=== PATIENT | female | born 1990 | race Two or more races ===

== ENCOUNTER 2024-02-14 07:00 | Inpatient (IN) | payer OTHER ==
[~2024-02-14] VITALS: Ht 162.6 cm; Wt 48.1 kg
[2024-02-14] MEDS ORDERED: ROCALTROL0.25 MCG PO (08:38)
[2024-02-14] MEDS ORDERED: SYNTHROID137 MCG PO (08:38)
[2024-02-14] MEDS ORDERED: CALCIUM CARBON600 MG PO (08:39)
[2024-02-14 08:51] LABS: HEMATOCRIT 37.5 % (36.0-45.00); HEMOGLOBIN 12.5 g/dL (12.0-15.00); MEAN CELL VOLUME 78.5 fL (80.00-100.00); MEAN CORPUSCULAR HEMOGLOBIN 26.1 pg (27.00-32.0); MEAN CORPUSCULAR HGB CONC 33.3 g/dl (32.0-36.0); PLATELET COUNT 292 K/uL (150-450); RED BLOOD COUNT 4.77 M/uL (4.00-6.00); RED CELL DISTRIBUTION WIDTH 16.6 % (11.5-14.5)
[2024-02-14 08:52] LABS: URINE APPEARANCE Clear; URINE BILIRRUBIN Negative (NEGATIVE); URINE BLOOD Negative; URINE COLOR Yellow; URINE GLUCOSE Negative (NEGATIVE); URINE LEUKOCYTE Negative; URINE NITRATE Negative; URINE PROTEIN Negative (NEGATIVE); URINE UROBILINOGEN 0.2 E.U./dl
[2024-02-14 08:54] LABS: URINE BACTERIA 1777.6 uL (0.0-1933); URINE EPITHELIAL CELLS 12.1 uL (0.0-38.8); URINE RBC 3.8 uL (0.0-20.8)
[2024-02-14 09:21] LABS: INR 0.98; PARTIAL THROMBOPLASTIN TIME 30.2 SECONDS (22.0-34.0); PROTHROMBIN TIME 10.3 SECONDS (9.0-11.5)
[2024-02-14 09:31] LABS: BILIRUBIN TOTAL 0.38 mg/dL (0.3-1.2); CALCIUM 8.8 mg/dL (8.5-10.1); CREATININE SERUM 0.79 mg/dL (0.55-1.02); GFR 83.81; GLOBULINA 3.9 G/DL (2.4-3.5); POTASSIUM 4.51 mEq/L (3.5-5.1); TOTAL PROTEIN 7.9 gm/dL (6.4-8.2)
[2024-02-21] MEDS ORDERED: DEXAMETHASONE SODIUM PHOSPHATE 4 MG/ML VIAL IV ONE (07:45)
[2024-02-21] MEDS ORDERED: CLINDAMYCIN PHOSPHATE 150 MG/ML (600mg) IV ONE (08:15)
[2024-02-21] MEDS ORDERED: ENALAPRILAT DIHYDRATE 1.25 MG/ML VIAL IV PRN (13:30)
[2024-02-21] MEDS ORDERED: ONDANSETRON HCL 2 MG/ML VIAL IV PRN (13:30)
[2024-02-21] MEDS ORDERED: CALCITRIOL 0.5 MCG CAPSULE PO SCH (17:00)
[2024-02-21] MEDS ORDERED: Calcium Carbonate 1 TAB TABLET PO SCH (17:00)
[2024-02-21] MEDS ORDERED: ACETAMINOPHEN 500 MG GEL..CAP PO SCH (17:00)
[2024-02-21] MEDS ORDERED: CYCLOBENZAPRINE HCL 5 MG TABLET PO SCH (17:00)
[2024-02-21] MEDS ORDERED: TRAMADOL HCL 50 MG TABLET PO SCH (18:00)
== END 2024-02-22 14:27 | disposition home or self-care (01) | DRG 626 ==
LOC: SURH 02-21 05:30 → O/R 02-21 05:30 → SURH 02-21 07:00
PROVIDERS: ADMIT Surgery; ATTEND Surgery
PROC: 07T10ZZ Resection of Right Neck Lymphatic, Open Approach (ICD-10-PCS; 2024-02-21)
PROC: 0GTH0ZZ Resection of Right Thyroid Gland Lobe, Open Approach (ICD-10-PCS; principal; 2024-02-21 16:15)
DX: C73 Malignant neoplasm of thyroid gland (principal); C77.0 Secondary and unspecified malignant neoplasm of lymph nodes of head, face and neck; Z20.822 Contact with and (suspected) exposure to COVID-19

== ENCOUNTER 2025-03-22 08:26 | Outpatient (CLI) | payer OTHER ==
[~2025-03-22 08:26] MED LIST: CALCIUM CARBON600 MG PO; ROCALTROL0.25 MCG PO; SYNTHROID137 MCG PO
== END 2025-03-22 08:28 | disposition home or self-care (01) ==
LOC: SONOGRAMA 08:26
PROVIDERS: ATTEND Pathology Anatomic Pathology & Clinical Pathology
DX: D44.0 Neoplasm of uncertain behavior of thyroid gland (principal); C73 Malignant neoplasm of thyroid gland